=== PATIENT | female | born 1955 | race Caucasian/White ===

== ENCOUNTER → 2017-01-16 | Outpatient (CLI) | payer BC ==
--- NOTE | 2017-01-16 15:43 | RAD ---
HISTORY: Chronic lower back pain with radiation down both legs Study: Lumbar spine series Comparison: None Findings: Lumbar spine alignment is normal. No acute fracture or subluxation is identified. There is very mild multilevel degenerative disc disease and moderate facet arthropathy, greatest caudally. SI joints a ppear normal. There is mild atherosclerotic calcification of the abdominal aorta without aneurysm. IMPRESSION: Mild degenerative changes of the lumbar spine, as above. Reported By:
== END | disposition home or self-care (01) | DRG 305 ==
LOC: RAD 15:02
PROVIDERS: ATTEND Physician Assistant Medical
DX: I10 Essential (primary) hypertension (principal); M54.41 Lumbago with sciatica, right side; M54.42 Lumbago with sciatica, left side; M51.36 Other intervertebral disc degeneration, lumbar region; M47.896 Other spondylosis, lumbar region; I70.0 Atherosclerosis of aorta
CPT/HCPCS: 72110

== ENCOUNTER → 2017-01-27 | Outpatient (CLI) | payer BC ==
--- NOTE | 2017-01-27 11:59 | MRI ---
HISTORY: Back pain, bilateral radiculopathy Study: MRI lumbar spine without contrast Comparison: Plain films January 16, 2017 Technique: Multiplanar multi-sequence MRI of the lumbar spine was obtained. Sagittal T1, sagittal T 2, and stir weighted images, axial T1, and axial T2 images were obtained. Findings: The lumbar spine demonstrates normal alignment with the expected signal characteristics of the bone marrow with the exception of a 2.2 x 1.6 centimeter lesion in the left side of the L3 vertebral body . The lesion demonstrates mixed signal on T1 and increased signal on T2 and STIR. This may represen t an atypical hemangioma. Nuclear medicine bone scan is recommended in order to exclude a more signi ficant active process. The conus of the cord terminates normally. T12 -- L1: No evidence for compressive disc disease. The neural foramina are patent. The joints are normal. L1 -- L2: No evidence for compressive disc disease. The neural foramina are patent. The joints are n ormal. L2 -- L3: No evidence for compressive disc disease. The neural foramina are patent. The joints are n ormal. L3 -- L4: There is broad-based and concentric disc bulging which extends somewhat more to the right than the left. It effaces the thecal sac but does not contribute to significant lateral recess or ne ural foraminal narrowing. Mild facet arthropathy is present bilaterally. L4 -- L5: There is a small focal leftward disc protrusion which contributes along with mild facet ar thropathy to left lateral recess and foraminal narrowing. The right neural foramen is patent. Facet arthropathy is present also on the right. L5 -- S1: No evidence for compressive disc disease. The neural foramina are patent. Mild bilateral f acet arthropathy is present. IMPRESSION: 2.2 x 1.6 centimeter bone lesion in the left side of the L3 vertebral body most likely an atypical h emangioma however nuclear medicine bone scan is recommended in order to exclude a more significant a ctive process. Disc findings detailed for each disc level above Reported By:
== END | disposition home or self-care (01) | DRG 305 ==
LOC: RAD 10:36
PROVIDERS: ATTEND Physician Assistant Medical
DX: I10 Essential (primary) hypertension (principal); M54.41 Lumbago with sciatica, right side; M54.42 Lumbago with sciatica, left side
CPT/HCPCS: 72148

== ENCOUNTER → 2017-02-17 | Outpatient (CLI) | payer BC | LOC: RAD 10:11 | PROVIDERS: ATTEND Physician Assistant Medical | DX: Z12.31 Encounter for screening mammogram for malignant neoplasm of breast (principal) | CPT/HCPCS: 77067 ==